=== PATIENT | female | born 1960 | race Asian ===

== ENCOUNTER → 2024-01-20 | Outpatient (CLI) | payer BC ==
[~2024-01-20] MED LIST: FENTanyl CITRate PF 50 MCG/1 ML 2ML VIAL ONE; dexaMETHasone SOD PHOSPHATE 10MG/ML 1ML VIAL ONE; ondanSETRON 4MG INJ ONE; proPOFol 10 MG/ML 20ML VIAL IV ONE
== END | disposition home or self-care (01) ==
LOC: RAH 14:04
PROVIDERS: ATTEND Internal Medicine Endocrinology, Diabetes & Metabolism
DX: E03.8 Other specified hypothyroidism (principal); E78.2 Mixed hyperlipidemia
CPT/HCPCS: 76536; J1100; J2405; J2704; J3010; J3490

== ENCOUNTER → 2024-01-20 | Outpatient (CLI) | payer OTHER | END | disposition home or self-care (01) | LOC: RAH 14:13 → EDUNIT# 16:00 | PROVIDERS: ATTEND Internal Medicine Endocrinology, Diabetes & Metabolism | DX: Z13.6 Encounter for screening for cardiovascular disorders (principal) | CPT/HCPCS: 75571 ==